=== PATIENT | male | born 1990 | race Caucasian/White ===

== ENCOUNTER → 2024-01-17 11:02 | Outpatient (REF) | payer OTHER, SELFPAY | LOC: MRI 3T 11:02 | PROVIDERS: ATTENDING PHYSICIAN Internal Medicine Gastroenterology; FAMILY PHYSICIAN Nurse Practitioner Family | DX: K50.819 Crohn's disease of both small and large intestine with unspecified complications (principal) | CPT/HCPCS: 72197; 74183; A9575 ==

== ENCOUNTER → 2024-05-10 06:42 | Day surgery (SDC) | payer OTHER, SELFPAY | LOC: GI 06:42 | PROVIDERS: ATTENDING PHYSICIAN Internal Medicine Gastroenterology; FAMILY PHYSICIAN Nurse Practitioner Family | DX: K50.819 Crohn's disease of both small and large intestine with unspecified complications (principal); K52.9 Noninfective gastroenteritis and colitis, unspecified | CPT/HCPCS: 45380; 88305 ==